=== PATIENT | female | born 1955 | race Two or more races ===

== ENCOUNTER 2025-03-15 10:23 | Emergency (ER) | payer OTHER ==
[~2025-03-15] VITALS: Ht 162.6 cm; Wt 85.7 kg
--- NOTE | 2025-03-15 11:33 | ED.PDOC ---
GI ASSESSMENT HPI Comments HPI: 69 y/o F, with PMHx of bacterial colitis presents to the ED for CC of GI Bleed. Patient states, she has been experiencing symptoms of bloody diarrhea onset, this morning (03/15/25). Patient reports, this she has had previous episodes in the past of loose stools however, they have never been blood streaked.Patient de nies dark tarry stools, fever, fatigue, weakness, nausea, or vomiting. No other symptoms or modifying factors present at this time. Initial Vitals BP: HR: RR: O2: Temp: Past Medical History: BACTERIAL COLITIS Past Surgical History: RIGHT HIP, colonoscopy three years ago Social History: Denies ETOH, smoking, and drug use. Medications: BABY ASPIRIN Allergies: NKA HPI: Poor Historian. REVIEW OF SYSTEMS: CONSTITUTIONAL: Denies acute: fever, diaphoresis, chills, generalized weakness. HEAD: Denies acute: headache, photophobia Eyes: Denies acute: Double vision, vision loss, eye pain, eye discharge. EARS: Denies acute: tinnitus, hearing loss, ear discharge, ear pain, THROAT: Denies acute: sore throat, swelling, difficulty swallowing , pain with swallowing, change in voice. NECK: Denies acute: neck pain, neck swelling, stiff neck. HEART: Denies acute : chest pain, palpitations, LUNGS: Denies acute: SOB, wheezing, cough, hemoptysis ABDOMEN: Denies acute: Nausea, Vomiting, diarrhea, melena , hematemesis, SKIN: Denies acute: rash, redness, lesions, itchiness. EXTREMITIES: Denies acute: calf pain, numbness, tingling, weakness, denies pain in extremity. Denies acute: Low back pain. Neuro: Denies acute: focal neurological deficit, motor or sensory focal neurological deficit, tremors, seizure like activity, confusion, dizziness, change in mental status, loss of bowel or bladder function, cauda equina like symptoms. : Denies acute: dysuria, hematuria, flank pain, increase in urinary frequency. PSYCH: Denies acute: hallucination, suicidal ideation, homicidal ideation. FEMALE: Denies acute: abnormal vaginal bleeding, foul odor, unusual discharge. PHYSICAL EXAM: General: ----beps-sa-rvobngwn----acute distress, awake and alert. Head: normocephalic, atraumatic. Neck: supple, trachea is midline, no swelling. Throat: Normal phonation. Eyes:, no erythema, no purulent discharge, no proptosis, no icterus. Heart: regular rate, regular rhythm, no significant murmur appreciated. Lungs: no apparent respiratory distress, Able to speak in full sentences. No wheezing, no rhonchi, no crackles. No stridors Clear to auscultation bilaterally. Abdomen: Left lower quad tender to palpation, non distended, soft, no guarding, no rebound, + bowel sounds. Obese Neuro: Awake, Alert, oriented to name, self, situation, follows commands GCS=15. Speech is normal. Skin: no petechia, no purpura, no cyanosis, non-pale, not jaundice. Lower extremities: --no - Pitting edema no deformity, no focal swelling, no calf TTP. Makes eye contact. moves all four extremities. Face: no apparent facial droop. Ambulating in the ED independently. ED COURSE: DISCLAIMER: This medical document was created using an electronic medical record system with voice recognition software and computerized dictation system. Although this document has been carefully reviewed, there might still be some phonetic and typographical errors. Occasional wrong-word or "sound-alike" substitutions may have occurred due to the inherent limitations of voice recognition software. The se areas are purely typographical due to imperfections of the software programs and do not reflect any compromise in the patient's medical care. Please read the chart carefully and recognize, using context, where these substitutions have occurred. Chief Complaint: GI Bleed Time Seen by MD: 11:00 Reviewed Notes: Nurses Notes, Medications, Allergies Allergies: Coded Allergies: NO KNOWN ALLERGIES (Unverified , 03/15/25) Home Meds Active Scripts Metronidazole (Flagyl) 500 Mg Tab, 500 MG PO TID for 7 Days, #21 TAB Prov:COLBY LAM DO 03/15/25 Ciprofloxacin Hydrochloride (Ciprofloxacin HCl) 500 Mg Tab, 500 MG PO BID for 7 Days, #14 TAB Prov:COLBY LAM DO 03/15/25 Information Source: Patient Mode of Arrival: Ambulatory Timing: Hours Duration: Since onset Prehospital treatment: None Quality: None Vomitus: None Stool: Blood Streaked, Watery Severity: Moderate Recent: Travel Recent Hx of: Other (bacterial colitis) Pain Location: None Modifying Factors: Nothing Associated sign and symptoms: Diarrhea, Blood in Stool GI differential Dx Differential Diagnosis: Diverticular disease, Gastritis/PUD, Gastroenteritis, GI hemorrhage, Inflammatory BD, Electrolyte Imbalance, Food Poisoning, Bacterial, Viral, Other (Diverticulitis, colitis, fistula, neoplasm, hemorrhoids, anal fissures, constipation, Crohn's disease, ulcerative colitis) X-Ray, Labs, Meds, VS Vital Signs Date Time Temp Pulse Resp B/P (MAP) Pulse Ox O2 Delivery O2 Flow Rate FiO2 03/15/25 13:49 75 18 163/61 (95) 98 03/15/25 12:48 84 16 96 Room Air* 0 21 03/15/25 12:08 83 20 96 Room Air 03/15/25 12:08 97.9 83 20 139/92 (108) 96 97.9 03/15/25 10:35 98.0 85 17 128/74 (92) 99 98.0 Lab Test 03/15/25 11:29 03/15/25 11:06 03/15/25 10:35 Range/Units White Blood Count 9.6 4.4-10.8 10^3/uL Red Blood Count 4.39 4.0-5.20 10^6/uL Hemoglobin 14.0 12.2-16.2 g/dL Hematocrit 41.2 36.0-46.0 % Mean Corpuscular Volume 93.8 80.0-100.0 fL Mean Corpuscular Hemoglobin 32.0 28.0-32.0 pg Mean Corpuscular Hemoglobin Concent 34.1 32.0-36.0 g/dL Red Cell Distribution Width 14.0 11.8-14.3 % Platelet Count 211 140-450 10^3/uL Mean Platelet Volume 7.7 6.9-10.8 fL Neutrophils (%) (Auto) 75.9 37.0-80.0 % Lymphocytes (%) (Auto) 16.7 10.0-50.0 % Monocytes (%) (Auto) 6.5 0.0-12.0 % Eosinophils (%) (Auto) 0.3 0.0-7.0 % Basophils (%) (Auto) 0.6 0.0-2.0 % Neutrophils # (Auto) 7.3 1.6-8.6 10 ^3/uL Lymphocytes # (Auto) 1.6 0.4-5.4 10 ^3/uL Monocytes # (Auto) 0.6 0-1.3 10 ^3/uL Eosinophils # (Auto) 0 0-0.8 10 ^3/uL Basophils # (Auto) 0.1 0-0.2 10 ^3/uL Nucleated Red Blood Cells 0.2 % Sodium Level 144 136-145 mmol/L Potassium Level 3.8 3.5-5.1 mmol/L Chloride Level 108 H 98-107 mmol/L Carbon Dioxide Level 26 20-31 mmol/L Anion Gap 10 5-15 Blood Urea Nitrogen 15 9-23 mg/dL Creatinine 0.75 0.550-1.02 mg/dL Glomerular Filtration Rate Calc 86 >90 mL/min BUN/Creatinine Ratio 20.0 10.0-20.0 Serum Glucose 110 H 74-106 mg/dL Lactic Acid Level 2.4 *H 0.4-2.0 mmol/L Calcium Level 9.7 8.7-10.4 mg/dL Total Bilirubin 1.3 H 0.2-1.0 mg/dL Aspartate Amino Transferase (AST) 18 13-40 U/L Alanine Aminotransferase (ALT) 18 7-40 U/L Alkaline Phosphatase 86 46-116 U/L Total Protein 7.2 5.7-8.2 g/dL Albumin 4.8 3.2-4.8 g/dL Lipase 40 12-53 U/L Urine Color Light-yellow Yellow Urine Clarity Clear Clear Urine pH 5.5 5.0-9.0 Urine Specific [place] 1.020 1.001-1.035 Urine Protein Negative Negative Urine Ketones Negative Negative Urine Blood Negative Negative /uL Urine Nitrite Negative Negative Urine Bilirubin Negative Negative Urine Urobilinogen Normal Negative mg/dL Urine Leukocyte Esterase Negative Negative /uL Urine RBC <1 0 - 4 /hpf Urine Microscopic WBC 2 0-5 /HPF Urine Squamous Epithelial Cells Few <5 /hpf Urine Bacteria None seen None Seen /hpf Urine Glucose Normal Normal mg/dL Stool Occult Blood Positive Negative Stool Occult Blood Sample #3 Negative Stool for White Cells Moderate Microbiology Date/Time Source Procedure Growth Status 03/15/25 10:35 Stool Stool Culture - Final Complete 03/15/25 10:35 Stool Shiga Toxin I & II - Final Complete 03/15/25 10:35 Stool Clostridium difficile Toxin Assay - Final Complete [address] [address] Ph: [phone] DIAGNOSTIC IMAGING Diagnostic Imaging Report : [id number] Signed PATIENT: CHEMO COLE ACCT: [id number] UNIT: [id number] : 1955 LOC: ER ROOM / BED: / AGE / SEX: 69 / F ADM STATUS: REG ER SERVICE 1106 ORDERING PHYSICIAN: COLBY LAM DO PROCEDURE(s): ABPL - CT AB PEL WO CON-NO ORAL OR IV REASON: rectal bleed, LLQ pain ORDER NUMBER(s): [id number], ACCESSION NUMBER(s): [id number] Indication: rectal bleed, LLQ pain Technique: CT axial images of the abdomen and pelvis are obtained without contrast. Coronal and sagittal reformats were obtained. Radiation Dose Information: CTDI volume is 17.77 mGy. Dose-length product is 1077.78 mGy*cm Comparison: None FINDINGS: There is limited interpretation of the abdomen and pelvis without administration of intravenous contrast. The lung bases demonstrate atelectasis. Adrenal glands, spleen and pancreas unremarkable in shape. Hepatic steatosis. [address] evidence for cholelithiasis. Hepatic calcification consistent with remote granulomatous disease. The kidneys demonstrate no hydronephrosis, nephrolithiasis. Stomach is partially distended. Small bowel loops are normal in caliber. Mild wall thickening with surrounding stranding involving the descending and rectosigmoid colon no secondary signs for appendicitis present. Abdominal aortic atherosclerotic disease. Left ovarian/adnexal cystic lesion measuring 3.5 cm. Bladder is partially distended. No free pelvic fluid. No inguinal lymphadenopathy. Right hip arthroplasty. Viju-jb-wjwxlfla thoracolumbar degenerative disc disease . Chce-mc-zbyfjuaj lumbar facet hypertrophic changes. IMPRESSION: Mild bowel wall thickening of the descending and rectosigmoid colon with surrounding stranding, likely representing colitis/ inflammatory bowel disease. Left ovarian/ adnexal cystic lesion measuring 3.5 cm. This can be further characterized with pelvic ultrasound. Other findings as described. ATED BY: CATARINO PIMENTEL MD DICTATED DATE/TIME: 03/15/25 1145 SIGNED BY: CATARINO PIMENTEL MD SIGNED DATE/TIME: 03/15/255 CC: Time of 1ST Reevaluation: 11:30 Reevaluation 1ST: Unchanged Patient Education/Counseling: Diagnosis, Treatment Family Education/Counseling: No Family Present Comments Patient presented with the above HPI.--abdominal pain----workup was initiated. patient was found with the above mentioned diagnosis. the following medications were ordered: please refer to order lists of meds and tests obtained by myself Dr. Lam. Patient ED course and VS have been stabilized. Patient has been reassessed in the ED and remained in a stable condition. Pertinent incidental findings were discussed with the patient and/or family. Patient/family voices understanding and is agreeable with plan. Patient has been observed in the ED adequate length of time to insure improvement/stability. Escalation of care considered: Consideration of escalation to observation or admission Patient was ADMITTED to the medicine team for further evaluation and treatment of their presentation. I was later informed that the patient left against medical advice. All the reports of any imaging studies that were ordered by myself were reviewed by myself. Departure 1 Departure Time of Disposition: 11:48 Impression: Primary Impression: Rectal bleeding Additional Impressions: Colitis Left against medical advice Disposition: ADMITTED INPATIENT Admit to: [facility] Condition: Guarded Additional Instructions: [place] [address] Ph: [phone] DIAGNOSTIC IMAGING Diagnostic Imaging Report : [id number] Signed PATIENT: CHEMO COLE ACCT: [id number] UNIT: [id number] : 1955 LOC: ER ROOM / BED: / AGE / SEX: 69 / F ADM STATUS: REG ER SERVICE 1106 ORDERING PHYSICIAN: COLBY LAM DO PROCEDURE(s): ABPL - CT AB PEL WO CON-NO ORAL OR IV REASON: rectal bleed, LLQ pain ORDER NUMBER(s): [id number], ACCESSION NUMBER(s): [id number] Indication: rectal bleed, LLQ pain Technique: CT axial images of the abdomen and pelvis are obtained without contrast. Coronal and sagittal reformats were obtained. Radiation Dose Information: CTDI volume is 17.77 mGy. Dose-length product is 1077.78 mGy*cm Comparison: None FINDINGS: There is limited interpretation of the abdomen and pelvis without administration of intravenous contrast. The lung bases demonstrate atelectasis. Adrenal glands, spleen and pancreas unremarkable in shape. Hepatic steatosis. [address] evidence for cholelithiasis. Hepatic calcification consistent with remote granulomatous disease. The kidneys demonstrate no hydronephrosis, nephrolithiasis. Stomach is partially distended. Small bowel loops are normal in caliber. Mild wall thickening with surrounding stranding involving the descending and rectosigmoid colon no secondary signs for appendicitis present. Abdominal aortic atherosclerotic disease. Left ovarian/adnexal cystic lesion measuring 3.5 cm. Bladder is partially distended. No free pelvic fluid. No inguinal lymphadenopathy. Right hip arthroplasty. Odug-hg-jctvffqh thoracolumbar degenerative disc diseas e. Qcqd-yb-uswlwgct lumbar facet hypertrophic changes. IMPRESSION: Mild bowel wall thickening of the descending and rectosigmoid colon with surrounding stranding, likely representing colitis/ inflammatory bowel disease. Left ovarian/ adnexal cystic lesion measuring 3.5 cm. This can be further characterized with pelvic ultrasound. Other findings as described. ATED BY: CATARINO PIMENTEL MD DICTATED DATE/TIME: 03/15/25 1145 SIGNED BY: CATARINO PIMENTEL MD SIGNED DATE/TIME: 03/15/25 1145 CC: e-Prescriptions Metronidazole (Flagyl) 500 Mg Tab 500 MG PO TID for 7 Days, #21 TAB Prov: COLBY LAM DO 03/15/25 Ciprofloxacin Hydrochloride (Ciprofloxacin HCl) 500 Mg Tab 500 MG PO BID for 7 Days, #14 TAB Prov: COLBY LAM DO 03/15/25 Discharged With: Self Critical Care Note Critical Care Time?: No Heart Score Heart Score: Heart Score Response (Comments) Value History N/A 0 EKG N/A 0 Age N/A 0 Risk Factors N/A 0 Troponin N/A 0 Total 0 I personally scribed for COLBY LAM DO ([email or web address]) on 03/15/25 at 11:32. Electronically submitted by Ester Boswell ([email or web address]). I personally scribed for OCLBY LAM DO ([email or web address]) on 03/15/25 at 12:20. Electronically submitted by Ester Boswell [email or web address]). COLBY LAM DO Mar 15, 2025 11:32
--- NOTE | 2025-03-15 11:46 | DVH ---
Indication: rectal bleed, LLQ pain Technique: CT axial images of the abdomen and pelvis are obtained without contrast. Coronal and sagit rebecca reformats were obtained. Radiation Dose Information: CTDI volume is 17.77 mGy. Dose-length product is 1077.78 mGy*cm Comparison: None FINDINGS: There is limited interpretation of the abdomen and pelvis without administration of intravenous contr ast. The lung bases demonstrate atelectasis. Adrenal glands, spleen and pancreas unremarkable in shape. Hepatic steatosis. [address] evidence for cholelithiasis. Hepatic calcification consistent with remote granulomatous disease. The kidneys demonstrate no hydronephrosis, nephrolithiasis. Stomach is partially distended. Small bowel loops are normal in caliber. Mild wall thickening with surrounding stranding involving the descending and rectosigmoid colon no se condary signs for appendicitis present. Abdominal aortic atherosclerotic disease. Left ovarian/adnexal cystic lesion measuring 3.5 cm. Bladde r is partially distended. No free pelvic fluid. No inguinal lymphadenopathy. Right hip arthroplasty. Hcoi-dz-myjyivbz thoracolumbar degenerative disc disease. Evri-mf-quiimvxs l umbar facet hypertrophic changes. IMPRESSION: Mild bowel wall thickening of the descending and rectosigmoid colon with surrounding stranding, likel y representing colitis/ inflammatory bowel disease. Left ovarian/ adnexal cystic lesion measuring 3.5 cm. This can be further characterized with pelvic ultrasound. Other findings as described.
[2025-03-15 12:01] LABS: Hematocrit 41.2 % (36.0-46.0); Hemoglobin 14.0 g/dL (12.2-16.2); Mean Corpuscular Hemoglobin 32.0 pg (28.0-32.0); Mean Corpuscular Volume 93.8 fL (80.0-100.0); Nucleated Red Blood Cells % 0.2 %
[2025-03-15 12:08] VITALS: TEMP 97.9
[2025-03-15 12:18] LABS: Alanine Aminotransferase 18 U/L (7-40); Albumin 4.8 g/dL (3.2-4.8); Alkaline Phosphatase 86 U/L (46-116); Anion Gap 10 (5-15); BUN/Creatinine Ratio 20.0 (10.0-20.0); Blood Urea Nitrogen 15 mg/dL (9-23); Calcium 9.7 mg/dL (8.7-10.4); Carbon Dioxide 26 mmol/L (20-31); Lipase 40 U/L (12-53); Potassium 3.8 mmol/L (3.5-5.1); Sodium 144 mmol/L (136-145); Total Protein 7.2 g/dL (5.7-8.2)
[2025-03-15 12:19] LABS: Bilirubin, Total 1.3 mg/dL (0.2-1.0); Chloride 108 mmol/L (98-107); Glucose 110 mg/dL (74-106)
[2025-03-15 12:25] LABS: Lactic Acid w/Reflex 2.4 mmol/L (0.4-2.0)
[2025-03-15 12:27] LABS: Urine Protein, UAD Negative (Negative)
[2025-03-15] MEDS: SODIUM CHLORIDE 0.9% 1,000 ML IV ONE ×2 (12:33→13:04)
[2025-03-15] MEDS: CIPROFLOXACIN 400MG/200ML 200 ML IV ONE (12:33)
[2025-03-15] MEDS: PANTOPRAZOLE 40 MG/10 ML VIAL INJ IV ONE (12:33)
[2025-03-15 12:48] VITALS: PULSE 84; RESP 16; O2SAT 96
[2025-03-15 13:49] VITALS: BP 163/61; PULSE 75; RESP 18; O2SAT 98
[2025-03-15] MEDS ORDERED: HYDROcodone-ACET 5/325MG TAB PO PRN (14:00)
[2025-03-15] MEDS ORDERED: ONDANSETRON HCL 4 MG/2 ML VIAL IV PRN (14:00)
[2025-03-15] MEDS ORDERED: ACETAMINOPHEN 325 MG TAB PO PRN (14:00)
[2025-03-15] MEDS ORDERED: MORPHINE SULFATE INJ 2 MG/ml SYRG IV PRN (14:00)
[2025-03-15] MEDS ORDERED: METR-344 PO (14:48)
[2025-03-15] MEDS ORDERED: CIP500T PO (14:48)
[2025-03-16] MEDS ORDERED: cefTRIAXone 1GM/50ML D5W 50 ML IV SCH (09:00)
== END 2025-03-15 14:02 | disposition left against medical advice (07) ==
LOC: ER 10:23 → OVERFLOW 13:58 → UNDOADMIN 13:58 → UNDODISIN 14:23
DX: K62.5 Hemorrhage of anus and rectum (principal); K52.9 Noninfective gastroenteritis and colitis, unspecified; Z79.899 Other long term (current) drug therapy; Z98.890 Other specified postprocedural states
CPT/HCPCS: 36415; 74176; 80053; 81001; 82270; 83605; 83690; 85025; 85048; 87045; 87427; 87493; 96365; 96366; 96375; 99285; J0744; J2470; J7030; G0378